=== PATIENT | male | born 1950 | race Caucasian/White ===

== ENCOUNTER 2017-06-04 07:57 | Day surgery (SDC) | payer MEDICARE, OTHER ==
[~2017-06-04] VITALS: Ht 165.1 cm; Wt 78.2 kg
[~2017-06-04 07:57] MED LIST: FentaNYL CITRATE-PF 100 MCG/2 ML VIAL ONE; MIDAZOLAM HCL 2 MG/2 ML VIAL ONE; SODIUM CHLORIDE 0.9% 1,000 ML IV ONE
[2017-06-04] MEDS ORDERED: LIDOCAINE HCL 2% 30 ML JELLY TP ONE (07:58)
[2017-06-04] MEDS ORDERED: ALBUTEROL SULFATE 2.5 MG/0.5 ML NEB SOLUTION NEB ONE (07:58)
[2017-06-04] MEDS ORDERED: BENZOCAINE 20% 50 MCG/SPRAY 57 GM TP ONE (07:58)
[2017-06-04] MEDS ORDERED: SODIUM CHLORIDE 0.9% 1,000 ML IV ONE (08:34)
[2017-06-04] MEDS ORDERED: LEVO150 PO (08:50)
[2017-06-04] MEDS ORDERED: FLUT16H NASAL (08:50)
[2017-06-04] MEDS ORDERED: ESLI600T PO (08:50)
[2017-06-04] MEDS ORDERED: IBUP-2071 PO (08:50)
[2017-06-04] MEDS ORDERED: MULT-1203 PO (08:50)
[2017-06-04] MEDS ORDERED: RANI150T7 PO (08:50)
[2017-06-04] MEDS ORDERED: HYDR-2924 PO (08:50)
[2017-06-04] MEDS ORDERED: FINA5TAB41 PO (08:50)
[2017-06-04] MEDS ORDERED: TRAZ-147 PO (08:50)
[2017-06-04] MEDS ORDERED: METO50 PO (08:50)
[2017-06-04] MEDS ORDERED: AMLO-512 PO (08:50)
[2017-06-04] MEDS ORDERED: VALS160T2 PO (08:50)
[2017-06-04] MEDS ORDERED: PRED5 PO (08:50)
[2017-06-04] MEDS ORDERED: MethylPREDNISolone SOD SUCC 125 MG/2 ML VIAL IVP ONE (09:00)
[2017-06-04] MEDS ORDERED: MethylPREDNISolone SOD SUCC 125 MG/2 ML VIAL ONE ×2 (09:27→09:30)
[2017-06-04] MEDS ORDERED: OXYGEN THERAPY IH SCH (20:00)
== END 2017-06-04 10:25 | disposition home or self-care (01) ==
LOC: SURGERY 07:57
PROVIDERS: ATTEND Internal Medicine Critical Care Medicine
DX: J38.4 Edema of larynx (principal); B37.0 Candidal stomatitis; J84.111 Idiopathic interstitial pneumonia, not otherwise specified; G47.33 Obstructive sleep apnea (adult) (pediatric); I10 Essential (primary) hypertension; M19.90 Unspecified osteoarthritis, unspecified site; Z79.1 Long term (current) use of non-steroidal anti-inflammatories (NSAID); Z79.899 Other long term (current) drug therapy
CPT/HCPCS: 31623; 31624; 71045; 87015; 87070; 87205; 87220; 88108; 88312; J2250; J2930; J3010; J7030